=== PATIENT | female | born 1935 | race Caucasian/White ===

== ENCOUNTER 2024-04-26 16:21 | Emergency (ER) | payer OTHER, BC ==
[2024-04-26 16:40] VITALS: BP 135/57; PULSE 67; RESP 16; TEMP 97.5; BMI 54.6
[2024-04-26] MEDS ORDERED: DIPHTH,PERTUSS(ACELL),TET 0.5 ML DISP.SYRIN IM ONE ×2 (16:48→16:49)
[2024-04-26] MEDS: DIPHTH,PERTUSS(ACELL),TET 0.5 ML DISP.SYRIN IM ONE (16:52)
== END 2024-04-26 17:04 | disposition home or self-care (01) ==
LOC: FER 16:21
PROC: 3E0234Z Introduction of Serum, Toxoid and Vaccine into Muscle, Percutaneous Approach (ICD-10-PCS; principal; 2024-04-26)
DX: S81.812D Laceration without foreign body, left lower leg, subsequent encounter (principal); Z48.01 Encounter for change or removal of surgical wound dressing; W18.39XD Other fall on same level, subsequent encounter; Z23 Encounter for immunization
CPT/HCPCS: 90715; 99282-25

== ENCOUNTER 2024-04-28 14:57 | Inpatient (IN) | payer OTHER, BC ==
[2024-04-28 15:09] VITALS: TEMP 97.4; BMI 19.3
[2024-04-28] MEDS ORDERED: CARBIDOPA/LEVODOPA 25/100 TABLET (FP) ONE ×2 (16:26→22:06)
[2024-04-28 17:44] LABS: BASO % 0.5 % (0-2.0); EOS % 1.4 % (0-4.5); HEMATOCRIT 32.1 % (32.4-45.2); HEMOGLOBIN 10.7 GM/dL (10.7-15.3); LYMPH % 11.9 % (8-40); MCH 32.8 pg (25.7-33.7); MCHC 33.3 g/dl (32.0-36.0); MEAN CELL VOLUME 98.5 fl (80-96); MEAN PLT VOLUME 8.4 fl (7.5-11.1); MONO % 6.2 % (3.8-10.2); PLATELET COUNT 175 10^3/uL (134-434); RBC 3.26 M/mm3 (3.60-5.2); RDW 15.6 % (11.6-15.6); WHITE BLOOD COUNT 5.9 K/mm3 (4.0-10.0)
[2024-04-28 18:05] LABS: POTASSIUM 5.5 mmol/L (3.5-5.1)
[2024-04-28 18:07] LABS: CALCIUM 8.5 mg/dL (8.5-10.1)
[2024-04-28 18:08] LABS: ALBUMIN 3.2 g/dl (3.4-5.0); MAGNESIUM 1.9 mg/dL (1.8-2.4)
[2024-04-28 18:11] LABS: CREATININE 1.3 mg/dL (0.55-1.3)
[2024-04-28 18:13] LABS: BILIRUBIN,TOTAL 0.6 mg/dL (0.2-1); TOT PROT 5.7 g/dl (6.4-8.2)
[2024-04-28 19:53] LABS: EPI CELLS 5 /uL (0-25.1); HYALINE CASTS 0 /uL (0-3.1); PH,URINE 5.5 (5.0-8.0); URINE APPEARANCE CLEAR; URINE BACTERIA 9 /uL (0-1359); URINE BILIRUBIN NEGATIVE (NEGATIVE); URINE COLOR YELLOW; URINE GLUCOSE (UA) NEGATIVE (NEGATIVE); URINE KETONE TRACE (NEGATIVE); URINE LEUK ESTERASE NEGATIVE (NEGATIVE); URINE NITRITE NEGATIVE (NEGATIVE); URINE PROTEIN 1+ (NEGATIVE); URINE RBC 18 /uL (0-23.9); URINE WBC 10 /uL (0-25.8)
[2024-04-28] MEDS: CARBIDOPA/LEVODOPA 25/100 TABLET (FP) PO ONE (22:08)
[2024-04-28 22:30] LABS: POTASSIUM 4.4 mmol/L (3.5-5.1)
[2024-04-28 22:32] LABS: ALBUMIN 3.7 g/dl (3.4-5.0); CALCIUM 8.9 mg/dL (8.5-10.1)
[2024-04-28 22:33] LABS: BLOOD UREA NITROGEN 30.9 mg/dL (7-18)
[2024-04-28 22:36] LABS: CREATININE 1.4 mg/dL (0.55-1.3)
[2024-04-28 22:37] LABS: BILIRUBIN,TOTAL 0.4 mg/dL (0.2-1); TOT PROT 6.4 g/dl (6.4-8.2)
[2024-04-29] MEDS ORDERED: ACETAMINOPHEN 325 MG TABLET (FP) PO PRN (01:40)
[2024-04-29] MEDS: ACETAMINOPHEN 1000 MG/100 ML BAG IVPB ONE (01:58)
[2024-04-29 07:59] LABS: HEMATOCRIT 34.3 % (32.4-45.2); HEMOGLOBIN 11.4 GM/dL (10.7-15.3); MCH 32.9 pg (25.7-33.7); MCHC 33.2 g/dl (32.0-36.0); MEAN CELL VOLUME 99.1 fl (80-96); MEAN PLT VOLUME 8.2 fl (7.5-11.1); PLATELET COUNT 175 10^3/uL (134-434); RBC 3.46 M/mm3 (3.60-5.2); RDW 15.3 % (11.6-15.6); WHITE BLOOD COUNT 6.2 K/mm3 (4.0-10.0)
[2024-04-29 08:12] LABS: CHLORIDE 102 mmol/L (98-107); POTASSIUM 4.2 mmol/L (3.5-5.1); SODIUM 133 mmol/L (136-145)
[2024-04-29 08:19] LABS: ALBUMIN 3.4 g/dl (3.4-5.0); ANION GAP 5 mmol/L (4-13); BLOOD UREA NITROGEN 28.6 mg/dL (7-18); CALCIUM 8.6 mg/dL (8.5-10.1); CO2 27 mmol/L (21-32); GLUCOSE,RANDOM 87 mg/dL (74-106); MAGNESIUM 1.8 mg/dL (1.8-2.4)
[2024-04-29 08:20] LABS: SGPT/ALT < 6 U/L (13-61)
[2024-04-29 08:21] LABS: BILIRUBIN,TOTAL 0.7 mg/dL (0.2-1); SGOT/AST 12 U/L (15-37); TOT PROT 5.6 g/dl (6.4-8.2)
[2024-04-29 08:22] LABS: CREATININE 1.3 mg/dL (0.55-1.3)
[2024-04-29 08:23] LABS: ALK PHOS 50 U/L (45-117)
[2024-04-29] MEDS: AMIODARONE HCL 200 MG TABLET PO SCH (10:00)
[2024-04-29] MEDS: APIXABAN 2.5 MG TABLET PO SCH (10:00)
[2024-04-29] MEDS: ESCITALOPRAM OXALATE 10 MG TABLET PO SCH (10:00)
[2024-04-29] MEDS: CARBIDOPA/LEVODOPA 25/100 TABLET (FP) PO SCH ×2 (11:03→12:18)
[2024-04-29 12:11] VITALS: BP 140/66; PULSE 65; RESP 16
[2024-04-29] MEDS: metoPROLOL SUCCINATE 25 MG TAB.SR.24H (FP) PO SCH (12:18)
[2024-04-29] MEDS: CHOLECALCIFEROL (VIT D3) 1,000 UNIT (25 MCG) TABLET PO SCH (12:18)
== END 2024-04-29 12:24 | disposition home health service (06) | DRG 57 ==
LOC: JER 14:57 → JERBED 22:16 → OBSVTOIN 23:55
PROVIDERS: ADMIT Internal Medicine; ATTEND Nurse Practitioner
DX: G20.A1 Parkinson's disease without dyskinesia, without mention of fluctuations (principal); I48.91 Unspecified atrial fibrillation; S81.811A Laceration without foreign body, right lower leg, initial encounter; W19.XXXA Unspecified fall, initial encounter; Y93.9 Activity, unspecified; Y92.89 Other specified places as the place of occurrence of the external cause; Y99.9 Unspecified external cause status
CPT/HCPCS: 36415; 70450-TC; 71045-TC-FY; 72125-TC; 72128-TC; 72131-TC; 76937; 80053; 81003; 83735; 84100; 84439; 84443; 84484; 85025; 85027; 85730; 86850; 86900; 86901; 90715; 93005; 93010; 99282-25; 99285-25; G0378